=== PATIENT | female | born 1935 | race Caucasian/White ===

== ENCOUNTER 2017-03-10 10:49 | Inpatient (IN) | payer OTHER ==
[~2017-03-10] VITALS: Ht 160 cm; Wt 68.0 kg
[~2017-03-10 10:49] MED LIST: ASPIRIN EC81 M1 PO; NORCO 5-325 TA1 EACH PO; PRAVACHOL 20 MG20 M1 PO; ZOFRAN4 MG PO
[2017-03-10 11:09] VITALS: BP 135/80
[2017-03-10 11:23] LABS: ABSOLUTE NEUTROPHILS 13.5 thou/uL (1.4-8.2); BASOPHILS 0.5 % (0.0-2.0); HEMATOCRIT 54.4 % (37.0-47.0); MCH 29.7 pg (26.0-34.0); MCHC 33.1 g/dL (28.0-37.0); MCV 89.8 fL (80.0-100.0); MONOCYTES 3.8 % (1.0-8.0); PLATELET COUNT 280 thou/uL (150-400); POLYS 90.7 % (36.0-66.0); RBC 6.05 mil/uL (4.20-5.00); RDW 13.1 % (10.5-14.5); WBC 14.9 thou/uL (4.0-11.0)
[2017-03-10 11:39] LABS: CALCIUM 9.8 mg/dL (8.5-10.1); POTASSIUM 4.8 mmol/L (3.5-5.1)
[2017-03-10 11:45] LABS: ALBUMIN 4.6 g/dL (3.4-5.0); DIRECT BILIRUBIN 0.1 mg/dL (<0.1-0.3); TOTAL BILIRUBIN 0.7 mg/dL (<0.1-1.0); TOTAL PROTEIN 8.9 g/dL (6.4-8.2)
[2017-03-10 12:28] LABS: HCO3 10.9 mmol/L (22.0-26.0); PCO2 27.3 mmHg (35.0-45.0); PO2 92.6 mmHg (80.0-100.0); sO2 95.8 % (92.0-98.0)
[2017-03-10 12:29] LABS: pH 7.221 (7.360-7.450)
[2017-03-10 12:53] LABS: URINE BILIRUBIN NEGATIVE (Negative); URINE BLOOD 1+ (Negative); URINE CLARITY CLEAR; URINE COLOR YELLOW; URINE GLUCOSE-RANDOM* NEGATIVE (Negative); URINE KETONES 3+ (Negative); URINE LEUKOCYTES NEGATIVE (Negative); URINE NITRITE NEGATIVE (Negative); URINE PROTEIN (DIPSTICK) NEGATIVE (Negative); URINE SPECIFIC GRAVITY 1.025 (1.005-1.035); URINE UROBILINOGEN 0.2 E.U./dl (0.2-1.0)
[2017-03-10 12:58] LABS: CASTS None Seen /LPF (None Seen); CRYSTALS None Seen /LPF (None Seen); MUCUS 0-3 Light strn/LPF (None Seen); SQUAMOUS 0-3 Few /LPF (0-3)
[2017-03-10 12:59] LABS: BACTERIA None Seen /HPF (None Seen); URINE RBC 0-2 Rare /HPF (0-2); URINE WBC None Seen /HPF (0-5)
[2017-03-10 15:41] VITALS: BP 136/76
[2017-03-10 16:55] VITALS: BP 130/74
[2017-03-10 17:55] VITALS: BP 162/71
[2017-03-10 20:00] VITALS: BP 153/64
[2017-03-11 04:00] VITALS: BP 137/68
[2017-03-11 06:43] LABS: HEMATOCRIT 41.4 % (37.0-47.0); MCH 29.9 pg (26.0-34.0); MCHC 33.6 g/dL (28.0-37.0); MCV 88.9 fL (80.0-100.0); RBC 4.66 mil/uL (4.20-5.00); RDW 12.7 % (10.5-14.5); WBC 9.3 thou/uL (4.0-11.0)
[2017-03-11 06:52] LABS: CALCIUM 8.2 mg/dL (8.5-10.1); CREATININE 0.7 mg/dL (0.6-1.0)
[2017-03-11 07:07] LABS: POTASSIUM 3.3 mmol/L (3.5-5.1)
[2017-03-11 07:09] LABS: HEMOGLOBIN 13.9 gm/dL (12.0-15.0)
[2017-03-11 08:00] VITALS: BP 120/71
[2017-03-11 16:00] VITALS: BP 130/77
[2017-03-11 19:23] VITALS: BP 111/45; BP 133/66
[2017-03-12 04:30] VITALS: BP 120/67
[2017-03-12 06:14] LABS: HEMATOCRIT 39.1 % (37.0-47.0); HEMOGLOBIN 13.2 gm/dL (12.0-15.0); MCH 30.1 pg (26.0-34.0); MCHC 33.9 g/dL (28.0-37.0); MCV 88.7 fL (80.0-100.0); RBC 4.41 mil/uL (4.20-5.00); WBC 6.2 thou/uL (4.0-11.0)
[2017-03-12 06:18] LABS: CALCIUM 7.9 mg/dL (8.5-10.1); CREATININE 0.5 mg/dL (0.6-1.0); MAGNESIUM 1.8 mg/dL (1.8-2.4); POTASSIUM 3.2 mmol/L (3.5-5.1)
[2017-03-12 07:21] VITALS: BP 137/70
[2017-03-12 10:19] VITALS: BP 137/70
== END 2017-03-12 11:22 | disposition home or self-care (01) | DRG 642 ==
LOC: ER 10:49 → EROBS 13:20 → 4E 13:20 → ENTRNSPT 03-12 11:14 → EDTRNSPTSTS 03-12 11:16 → 4E 03-12 11:22
PROVIDERS: Internal Medicine; Nurse Practitioner
DX: E88.89 Other specified metabolic disorders (principal); E87.1 Hypo-osmolality and hyponatremia; T73.0XXA Starvation, initial encounter; K08.409 Partial loss of teeth, unspecified cause, unspecified class; X58.XXXA Exposure to other specified factors, initial encounter; D72.829 Elevated white blood cell count, unspecified; E78.5 Hyperlipidemia, unspecified; Z79.899 Other long term (current) drug therapy; Z90.49 Acquired absence of other specified parts of digestive tract; Z87.891 Personal history of nicotine dependence; Z90.710 Acquired absence of both cervix and uterus
CPT/HCPCS: 10183